=== PATIENT | male | born 1980 ===

== ENCOUNTER 2025-02-22 12:16 | Emergency (ER) | payer SELFPAY ==
[~2025-02-22] VITALS: Ht 172.7 cm; Wt 102.0 kg
[2025-02-22 12:19] VITALS: O2SAT 100
[2025-02-22] MEDS: IBUPROFEN 600MG TABLET PO ONE (14:43)
[2025-02-22] MEDS ORDERED: BO1 TP (15:25)
[2025-02-22] MEDS ORDERED: SULF1TAB48 MT (15:25)
[2025-02-22] MEDS: CEFTRIAXONE SODIUM 500MG VIAL IM ONE (15:32)
[2025-02-22 15:41] VITALS: BP 134/79; PULSE 87; RESP 16; TEMP 36.8; O2SAT 100
== END 2025-02-22 16:38 | disposition home or self-care (01) ==
LOC: ER 12:16 → EDSEX 12:16 → ER 16:38
DX: S92.919A Unspecified fracture of unspecified toe(s), initial encounter for closed fracture (principal)
CPT/HCPCS: 73630; 10160; 96372; 99284; J0696; Z7610 ×3